=== PATIENT | female | born 1990 | race African-American/Black ===

== ENCOUNTER 2017-09-19 15:31 | Emergency (ER) | payer SELFPAY ==
--- NOTE | 2017-09-19 15:35 | PDOC ---
Rapid Medical Evaluation Time Seen by Provider: 09/19/17 15:35 Medical Evaluation: 09/19/17 15:35 I have performed a brief in-person evaluation of this patient. The patient presents with a chief complaint of: s/p tonsillectomy 2 weeks ago in [place], p/w ?dysphagia and L ear pain since yesterday. No f/c Pertinent physical exam findings:Stable w/ L ear wnl, will defer proper oropharynx exam to FT provider I have ordered the following:soft tissue neck The patient will proceed to the ED for further evaluation. 09/19/17 15:43 09/19/17 15:44
[2017-09-19 15:40] VITALS: BP 106/66; PULSE 76; TEMP 98.5; BMI 25.4
--- NOTE | 2017-09-19 15:55 | PDOC ---
History of Present Illness - General Chief Complaint: Ear Problem Stated Complaint: POST OP PAIN, EAR PROBLEM Time Seen by Provider: 09/19/17 15:35 History Source: Patient Exam Limitations: No Limitations - History of Present Illness Initial Comments: 09/19/17 16:00 vision came for evaluation of throat. Status post tonsillectomy in [place] 2 weeks ago. And has concerns about residual swelling or food retention in her throat. Patient states ate a piece of bread last night and states has not felt the same since. Is able to swallow secretions, has no choking sensation, taking deep inspiration, and denies fever or any significant pain. Timing/Duration: unsure Severity: mild Associated Symptoms: reports: denies symptoms. denies: chest pain, cough, fever /chills, loss of appetite, malaise, shortness of breath Past History - Travel Traveled outside of the country in the last 30 days: No Close contact w/someone who was outside of country & ill: No - Past Medical History Allergies/Adverse Reactions: Allergies Allergy/AdvReac Type Severity Reaction Status Date / Time No Known Allergies Allergy Verified 09/19/17 15:40 Home Medications: Ambulatory Orders NK [No Known Home Medication] 09/19/17 COPD: No - Suicide/Smoking/Psychosocial Hx Smoking History: Never smoked Have you smoked in the past 12 months: No Information on smoking cessation initiated: No Hx Alcohol Use: No Drug/Substance Use Hx: No Substance Use Type: None Review of Systems - Review of Systems Able to Perform ROS?: Yes Is the patient limited Polish proficient: Yes Constitutional: Yes: See HPI. No: Symptoms Reported, Chills, Fever, Malaise HEENTM: Yes: Symptoms Reported, See HPI, Other (: The swollen lymph nodes). No : Throat Pain, Difficulty Swallowing, Mouth Swelling Respiratory: Yes: See HPI. No: Symptoms reported, Cough, Shortness of Breath Neurological: Yes: See HPI. No: Symptoms reported, Headache Hematologic/Lymphatic: Yes: Swollen Glands All Other Systems: Reviewed and Negative *Physical Exam - Vital Signs Last Vital Signs Temp Pulse Resp BP Pulse Ox 98.5 F 76 17 106/66 99 09/19/17 15:37 09/19/17 15:37 09/19/17 15:37 09/19/17 15:37 09/19/17 15:37 - Physical Exam General Appearance: Yes: Nourished, Appropriately Dressed. No: Apparent Distress HEENT: positive: DIONE, Normal ENT Inspection, Normal Voice, TMs Normal, Pharynx Normal (no redness, swelling, retained food products, swallowing secretions well , has some mild tender lymphadenopathy bilateral submandibular nodes and ac nodes.). negative: Muffled/Hoarse voice, Pharyngeal Erythema, Tonsillar Erythema, Nasal Congestion, Rhinorrhea Neck: positive: Tender, Supple, Lymphadenopathy (R), Lymphadenopathy (L) Respiratory/Chest: positive: Lungs Clear, Normal Breath Sounds Gastrointestinal/Abdominal: positive: Soft. 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 Suggested follow -up with ENT for thorough scope evaluation however there is no indication or evidence of any retained food products or tissue swelling. *DC/Admit/Observation/Transfer Diagnosis at time of Disposition: Throat irritation - Discharge Dispostion Disposition: HOME Condition at time of disposition: Stable Decision to Admit order: No - Referrals Referrals: Feliberto Weaver MD [Staff Physician] - - Patient Instructions Printed Discharge Instructions: DI for Lymphadenopathy Additional Instructions: Rest, drink lots of fluids: Teas, water, soups Saltwater gargles/ keep mouth clean and rinse after each meal May use wet teabag for pain relief to area Avoid hard chewing foods, stick to ice cream, Jell-O, yogurt etc. Tylenol or Motrin for fever and pain Complete all medication as prescribed Followup with private physician/ENT in one to 2 days as needed Return to emergency department for worsened symptoms, fevers, swelling to face or worsened pain - Post Discharge Activity
== END 2017-09-19 16:10 | disposition home or self-care (01) ==
LOC: JERFT 15:31
DX: R07.0 Pain in throat (principal)
CPT/HCPCS: 99281-25